=== PATIENT | male | born 1940 | race African-American/Black ===

== ENCOUNTER 2018-10-09 19:44 | Emergency (ER) | payer OTHER ==
[~2018-10-09] VITALS: Ht 172.7 cm; Wt 72.6 kg
[2018-10-09] MEDS ORDERED: SODIUM CHLORIDE 0.9% 500 ML IV ONE (20:04)
[2018-10-09 20:56] LABS: Basophils # (auto) 0.1 uL; Basophils % (auto) 1.3 % (0.0-2.0); Eosinophils # (auto) 0.1 uL; Eosinophils % (auto) 1.9 % (0.0-7.0); Hematocrit 28.8 % (41.0-53.0); Hemoglobin 9.3 g/dL (13.5-17.5); Lymphocytes # (auto) 0.7 uL; Lymphocytes % (auto) 10.8 % (10.0-50.0); Mean Corpuscular Hgb Conc. 32.4 g/dL (32.0-36.0); Mean Corpuscular Volume 95.8 fL (80.0-100.0); Monocytes # (auto) 0.4 uL; Monocytes % (auto) 6.3 % (0.0-12.0); Neutrophils # (auto) 4.9 uL; Neutrophils % (auto) 79.7 % (37.0-80.0); Nucleated Red Blood Cells % 0.6 %; Platelet Count (auto) 89 10^3/uL (140-450); White Blood Cell 6.1 10^3/uL (4.4-10.8)
[2018-10-09 20:58] LABS: Red Cell Distribution Width 20.5 % (11.8-14.3)
[2018-10-09 21:04] LABS: INR 1.11 (0.9-1.15); Partial Thromboplastin Time 27.2 sec (23.64-32.05); Prothrombin Time 11.9 sec (9.06-12.60)
[2018-10-09 21:06] LABS: Albumin 3.2 g/dL (3.4-5.0); Anion Gap 8 (5-15); Blood Urea Nitrogen 65 mg/dL (7-18); Calcium 8.7 mg/dL (8.5-10.1); Carbon Dioxide 21 mmol/L (21-32); Chloride 109 mmol/L (98-107); Glucose 110 mg/dL (74-106); Potassium 4.8 mmol/L (3.5-5.1); Sodium 138 mmol/L (136-145)
[2018-10-09 21:09] LABS: Alanine Aminotransferase 28 U/L (16-61); Aspartate Aminotransferase 29 U/L (15-37); BUN/Creatinine Ratio 28.5; GFR African American 36 mL/min; GFR Non-African American 30 mL/min
[2018-10-09 21:14] LABS: Alkaline Phosphatase 59 U/L (45-117); Bilirubin, Total 0.8 mg/dL (0.2-1.0); Total Protein 6.3 g/dL (6.4-8.2)
[2018-10-09 21:17] LABS: Urine Bacteria FEW /hpf (None Seen); Urine Blood Negative /uL (Negative); Urine Hyaline Cast MANY /lpf (0 - 2); Urine Mucus FEW (None Seen); Urine Specific Gravity 1.014 (1.001-1.035); Urine WBC 3 /hpf (0 - 3)
[2018-10-10 04:40] VITALS: BP 115/64
== END 2018-10-10 04:55 | disposition short-term general hospital (02) ==
LOC: EDBD 19:44 → ER 19:50
DX: S30.0XXA Contusion of lower back and pelvis, initial encounter (principal); K85.91 Acute pancreatitis with uninfected necrosis, unspecified; I48.91 Unspecified atrial fibrillation; N28.9 Disorder of kidney and ureter, unspecified; X58.XXXA Exposure to other specified factors, initial encounter; Y93.89 Activity, other specified; Y99.8 Other external cause status; Y92.89 Other specified places as the place of occurrence of the external cause
CPT/HCPCS: 36415; 70450; 71045; 73700; 74176; 80053; 81001; 82962; 83605; 83690; 83735; 83880; 84484; 85025; 85610; 85730; 86850; 86900; 86901; 93005; 94761; 99285; J7040

== ENCOUNTER 2021-04-17 23:17 | Emergency (ER) | payer OTHER ==
[~2021-04-17] VITALS: Ht 172.7 cm; Wt 74.8 kg
[2021-04-17] MEDS ORDERED: NIFEdipine 10 MG CAP PO ONE (23:30)
[2021-04-18 00:49] VITALS: BP 155/71
[2021-04-18] MEDS ORDERED: HYDROcodone-ACET 7.5/325MG TAB PO ONE (02:45)
[2021-04-18] MEDS ORDERED: KETOROLAC TROMETH 60MG/2ML VIAL IM ONE (02:45)
== END 2021-04-18 05:32 | disposition home or self-care (01) ==
LOC: ER 23:17 → EDBD 23:17 → ER 04-18 04:42
DX: M54.16 Radiculopathy, lumbar region (principal); I10 Essential (primary) hypertension; Z86.2 Personal history of diseases of the blood and blood-forming organs and certain disorders involving the immune mechanism
CPT/HCPCS: 72131; 93005; 96372; 99284; J1885